=== PATIENT | female | born 2000 | race Hispanic/Latino ===

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

== ENCOUNTER 2023-03-09 14:04 | Emergency (ER) | payer OTHER ==
--- OUTSIDE RECORDS SUMMARY | 2023-03-09 14:07 | XMS REPORT | Continuity of Care Document ---
:2000 Author Organization [facility] t Address [address] [place] [id number] Care Team Providers Name Role Phone Unavailable Unavailable Unavailable Problems This patient has no known problems. Allergies, Adverse Reactions, Alerts This patient has no known allergies or adverse reactions. Medications This patient has no known medications. Procedures This patient has no known procedures. Encounters Start End Encounter Admission Attending Care Care Encounter Source Date/Time Date/Time Type Type Clinicians Facility Department ID 2020-12-11 2020-12-11 Outpatient PRIV PRIV [id number] [id number] [facility] 10:57:00 10:57:00 [id number] Medica l Results This patient has no known results.
[2023-03-09] MEDS ORDERED: NA CHLORIDE 0.9% 1,000 ML ONE (14:36)
[2023-03-09 14:53] LABS: Absolute Lymphocytes (CBC) 1.3 K/uL (0.7-4.9); Hematocrit 38.1 % (36.0-45.0); Lymphocytes % 13.8 % (15.3-44.8); MCV 85.1 fL (80-100); MPV 7.4 fL (7.6-11.3); RBC Red Blood Cell Count 4.47 M/uL (3.86-4.86)
[2023-03-09 15:06] LABS: Albumin 3.6 g/dL (3.4-5.0); Bilirubin Total 0.4 mg/dL (0.2-1.0); Potassium 3.1 mEq/L (3.5-5.1); Protein, Total 7.2 g/dL (6.4-8.2)
--- NOTE | 2023-03-09 15:28 | ER ---
Nurse's Notes [facility] Name: Contreras Anderson Age: 22 yrs Sex: Female : 2000 Arrival Date: 03/09/2023 Time: 14:04 Bed 20 Private MD: Diagnosis: Dehydration;Diarrhea, unspecified;Headache Presentation: 03/09 14:16 Chief complaint: Patient states: she started having a headache yesterday with light ap3 sensitivity. patient also reports diarrhea and muscle cramping that started today. Coronavirus screen: Client presents with at least one sign or symptom that may indicate coronavirus-19. Ebola Screen: No symptoms or risks identified at this time. Initial Sepsis Screen: Does the patient meet any 2 criteria? HR > 90 bpm. Does the patient have a suspected source of infection? No. Patient's initial sepsis screen is negative. Risk Assessment: Do you want to hurt yourself or someone else? Patient reports no desire to harm self or others. Onset of symptoms was March 08, 2023. 14:16 Method Of Arrival: EMS: [facility] ap3 14:16 Acuity: CAILIN 3 ap3 14:30 Care prior to arrival: Medication(s) given: Normal saline infusion, 1000 mL, zofran 4 ap3 mg, IV initiated. 20 GA, in the right antecubital area. Triage Assessment: 14:17 General: Appears in no apparent distress. Behavior is calm, cooperative. Pain: ap3 Complains of pain in right leg and left leg. EENT: Reports. Neuro: Level of Consciousness is awake, alert, obeys commands, Oriented to person, place, time. Neuro: Reports headache since 03/08/23. Cardiovascular: Patient's skin is warm and dry. Respiratory: Airway is patent Respiratory effort is even, unlabored, Respiratory pattern is regular, symmetrical. GI: Reports diarrhea. Historical: - Allergies: 14:17 NKDA; ap3 - Home Meds: 14:17 None [Active]; ap3 - PMHx: 14:17 None; ap3 - Immunization history:: Client reports having NOT received the Covid vaccine. - Social history:: Smoking status: Patient denies any tobacco usage or history of. Screenin:18 [facility] ED Fall Risk Assessment (Adult) History of falling in the last 3 months, ap3 including since admission No falls in past 3 months (0 pts). Abuse screen: Denies threats or abuse. Nutritional screening: No deficits noted. Tuberculosis screening: No symptoms or risk factors identified. Assessment: 14:35 General: Appears in no apparent distress. comfortable, Behavior is calm, cooperative, ld1 appropriate for age. Pain: Complains of pain in forehead Pain does not radiate. Pain currently is 8 out of 10 on a pain scale. Quality of pain is described as throbbing. Neuro: Level of Consciousness is awake, alert, obeys commands, Oriented to person, place, time, situation. Neuro: Reports headache. Cardiovascular: Capillary refill < 3 seconds Patient's skin is warm and dry. Respiratory: Airway is patent Respiratory effort is even, unlabored. GI: Abdomen is flat, non-distended. : No signs and/or symptoms were reported regarding the genitourinary system. EENT: No signs and/or symptoms were reported regarding the EENT system. Derm: No signs and/or symptoms reported regarding the dermatologic system. Musculoskeletal: No signs and/or symptoms reported regarding the musculoskeletal system. 16:05 Reassessment: Patient appears in no apparent distress at this time. No changes from ld1 previously documented assessment. Patient and/or family updated on plan of care and expected duration. Pain level reassessed. Patient is alert, oriented x 3, equal unlabored respirations, skin warm/dry/pink. Vital Signs: 14:16 BP 113 / 77; Pulse 90; Resp 17; Temp 99.5; Pulse Ox 100% ; Weight 87.09 kg; Height 5 ap3 ft. 4 in. ; 14:35 BP 113 / 71; Pulse 87; Resp 18; Pulse Ox 100% on R/A; Pain 9/10; ld1 14:56 BP 133 / 67; Pulse 86; Resp 18; Pulse Ox 100% on R/A; ld1 16:05 BP 112 / 77; Pulse 81; Resp 18; Pulse Ox 99% on R/A; ld1 14:16 Body Mass Index 32.96 (87.09 kg, 162.56 cm) ap3 14:35 Pain Scale: Adult ld1 ED Course: 14:15 Patient arrived in ED. ap3 14:16 Drake Bell DO is Attending Physician. ms3 14:17 Triage completed. ap3 14:18 Arm band placed on right wrist. ap3 14:25 Magui Bell, RN is Primary Nurse. ld1 14:35 Patient has correct armband on for positive identification. Placed in gown. Bed in low ld1 position. Call light in reach. Side rails up X2. personnel monitor on. Pulse ox on. NIBP on. Door closed. Noise minimized. Warm blanket given. 14:35 CMP Sent. ld1 14:35 No provider procedures requiring assistance completed. Maintain EMS IV. Dressing ld1 intact. Good blood return noted. Site clean \T\ dry. Gauge \T\ site: 20g RC. 15:27 Keith Carbajal MD is Referral Physician. ms3 16:06 IV discontinued, intact, bleeding controlled, No redness/swelling at site. ld1 Administered Medications: 14:35 Drug: NS 0.9% IV 1000 ml Route: IV; Rate: 1000 ml; Site: right antecubital; ld1 16:05 Drug: Ketorolac IVP 10 mg 10 mg Route: IVP; Site: left antecubital; ld1 Medication: 14:35 VIS not applicable for this client. ld1 Outcome: 15:27 Discharge ordered by . ms3 16:06 Discharged to home ambulatory. ld1 16:06 Condition: stable 16:06 Discharge instructions given to patient, Instructed on discharge instructions, follow up and referral plans. Demonstrated understanding of instructions, follow-up care. 16:08 Patient left the ED. ld1 Signatures: Ashley Grande RN RN ap3 Drake Bell DO DO ms3 Magui Bell, RN RN ld1
--- NOTE | 2023-03-09 15:28 | EDPHYS ---
Physician Documentation [facility] Name: Contreras Anderson Age: 22 yrs Sex: Female : 2000 Arrival Date: 03/09/2023 Time: 14:04 Bed 20 Private MD: ED Physician Drake Bell HPI: 03/09 14:23 This 22 yrs old Female presents to ER via EMS with complaints of Headache. ms3 14:23 22-year-old female with no past medical history presents for chest pain, shortness of ms3 breath, headache, weakness, nausea that began last night. Patient states today she developed diarrhea today. EMS noted patient's blood pressure to be 90/60. After IV fluids patient's blood pressure 121/72. EMS noted patient's heart rate to be 90 and normal sinus rhythm. Patient states headache is a 4/10 and has improved with IV fluids administered by EMS. Historical: - Allergies: 14:17 NKDA; ap3 - Home Meds: 14:17 None [Active]; ap3 - PMHx: 14:17 None; ap3 - Immunization history:: Client reports having NOT received the Covid vaccine. - Social history:: Smoking status: Patient denies any tobacco usage or history of. ROS: 14:31 Constitutional: Negative for fever, and chills. Neck: Negative for injury, pain, and ms3 swelling, Cardiovascular: Negative for chest pain, and palpitations. Respiratory: Negative for shortness of breath, cough, wheezing, and pleuritic chest pain, Abdomen/GI: Negative for abdominal pain, nausea, vomiting, diarrhea, and constipation, MS/Extremity: Negative for injury and deformity. 14:31 Neuro: Positive for headache. 14:31 All other systems are negative. Exam: 14:31 Constitutional: This is a well developed, well nourished patient who is awake, alert, ms3 and in no acute distress. Head/Face: Normocephalic, atraumatic. Neck: Trachea midline, no cervical lymphadenopathy. Supple, full range of motion without nuchal rigidity, or vertebral point tenderness. No Meningismus. Chest/axilla: Normal chest wall appearance and motion. Nontender with no deformity. Cardiovascular: Regular rate and rhythm with a normal S1 and S2. No gallops, murmurs, or rubs. Normal PMI, no JVD. No pulse deficits. Respiratory: Lungs have equal breath sounds bilaterally, clear to auscultation and percussion. No rales, rhonchi or wheezes noted. No increased work of breathing, no retractions or nasal flaring. Abdomen/GI: Soft, non-tender, with normal bowel sounds. No distension or tympany. No guarding or rebound. No evidence of tenderness throughout. Skin: Warm, dry with normal turgor. Normal color with no rashes, no lesions, and no evidence of cellulitis. MS/ Extremity: Pulses equal, no cyanosis. Neurovascular intact. Full, normal range of motion. Neuro: Awake and alert, GCS 15, oriented to person, place, time, and situation. Cranial nerves II-XII grossly intact. Motor strength 5/5 in all extremities. Sensory grossly intact. Cerebellar exam normal. Normal gait. Vital Signs: 14:16 BP 113 / 77; Pulse 90; Resp 17; Temp 99.5; Pulse Ox 100% ; Weight 87.09 kg; Height 5 ap3 ft. 4 in. ; 14:35 BP 113 / 71; Pulse 87; Resp 18; Pulse Ox 100% on R/A; Pain 9/10; ld1 14:56 BP 133 / 67; Pulse 86; Resp 18; Pulse Ox 100% on R/A; ld1 16:05 BP 112 / 77; Pulse 81; Resp 18; Pulse Ox 99% on R/A; ld1 14:16 Body Mass Index 32.96 (87.09 kg, 162.56 cm) ap3 14:35 Pain Scale: Adult ld1 MDM: 14:17 Patient medically screened. ms3 14:31 Differential diagnosis: tension headache, Dehydration vs Viral Illness. ms3 15:37 Data reviewed: vital signs, nurses notes, lab test result(s), and as a result, I will ms3 discharge patient. I considered the following discharge prescriptions or medication management in the emergency department Medications were administered in the Emergency Department. See MAR. Historians other than the Patient: EMS: [facility]. Counseling: I had a detailed discussion with the patient and/or guardian regarding: the historical points, exam findings, and any diagnostic results supporting the discharge/admit diagnosis, lab results, the need for outpatient follow up, to return to the emergency department if symptoms worsen or persist or if there are any questions or concerns that arise at home. Response to treatment: the patient's symptoms have markedly improved after treatment, and as a result, I will discharge patient. Special discussion: I discussed with the patient/guardian in detail that at this point there is no indication for admission to the hospital. It is understood, however, that if the symptoms persist or worsen the patient needs to return immediately for re-evaluation. 03/09 14:16 Order name: CBC with Diff; Complete Time: 15:18 ms3 03/09 14:16 Order name: CMP; Complete Time: 15:18 ms3 Administered Medications: 14:35 Drug: NS 0.9% IV 1000 ml Route: IV; Rate: 1000 ml; Site: right antecubital; ld1 16:05 Drug: Ketorolac IVP 10 mg 10 mg Route: IVP; Site: left antecubital; ld1 Disposition Summary: 03/09/23 15:27 Discharge Ordered Location: Home ms3 Condition: Stable ms3 Diagnosis - Dehydration ms3 - Diarrhea, unspecified ms3 - Headache ms3 Followup: ms3 - With: Keiht Carbajal MD - When: 2 - 3 days - Reason: Recheck today's complaints Discharge Instructions: - Discharge Summary Sheet ms3 - Dehydration, Adult ms3 - Diarrhea, Adult ms3 - General Headache Without Cause ms3 Forms: - Medication Reconciliation Form ms3 - Thank You Letter ms3 - Antibiotic Education ms3 - Prescription Opioid Use ms3 - Patient Portal [email or web address].htm ms3 Signatures: Dispatcher [employer] Ashley Lewis RN RN ap3 Drake Bell DO DO ms3 Magui Bell RN RN ld1
[2023-03-09] MEDS ORDERED: KETOROLAC 30 MG/ML INJ ONE (16:12)
[2023-03-09 17:10] VITALS: TEMP 99.5
[2023-03-09 17:14] VITALS: BP 112/77; O2SAT 99
== END 2023-03-09 16:08 | disposition home or self-care (01) ==
LOC: ER 14:04
DX: E86.0 Dehydration (principal); R19.7 Diarrhea, unspecified
CPT/HCPCS: 85025; 36415; 80053; 96374; 99285; J7030